=== PATIENT | female | born 1950 | race Caucasian/White ===

== ENCOUNTER 2018-02-04 12:54 | Emergency (ER) | payer OTHER ==
[2018-02-04] MEDS: IODIXANOL LOCM 100 ML BTL (13:10)
[2018-02-04] MEDS: SOD CHLORIDE 0.9% 100 ML (13:10)
[2018-02-04 13:11] LABS: ADD MAN DIFF? NO
[2018-02-04 13:14] LABS: BASOPHIL # 0.1 10^3/ul (0.0-0.1); BASOPHILS % 0.5 % (0.0-2.0); EOSINOPHILS # 0.1 10^3/ul (0.0-0.5); EOSINOPHILS % 0.3 % (0.0-7.0); HEMATOCRIT 32.5 % (37.0-47.0); HEMOGLOBIN 10.5 g/dl (12.0-16.0); LYMPHOCYTES # 1.7 10^3/ul (0.8-2.9); LYMPHOCYTES % 7.6 % (15.0-51.0); MEAN CORPUSCULAR HEMOGLOBIN 32.1 pg (29.0-33.0); MEAN CORPUSCULAR HGB CONC 32.3 g/dl (32.0-37.0); MEAN CORPUSCULAR VOLUME 99.4 fl (82.0-101.0); MEAN PLATELET VOLUME 10.6 fl (7.4-10.4); MONOCYTE # 1.5 10^3/ul (0.3-0.9); MONOCYTES % 6.8 % (0.0-11.0); PLATELET COUNT 239 10^3/UL (140-415); RED BLOOD COUNT 3.27 10^6/ul (4.20-5.40); RED CELL DISTRIBUTION WIDTH 14.1 % (11.5-14.5)
[2018-02-04 13:14] LABS: WHITE BLOOD COUNT 21.9 10^3/ul (4.8-10.8)
[2018-02-04 13:33] LABS: INR 1.27; PROTIME 16.1 Sec (11.9-14.9); PT RATIO 1.3
[2018-02-04 13:34] LABS: PARTIAL THROMBOPLASTIN TIME 29.5 Sec (23.0-35.0)
[2018-02-04 13:41] LABS: ADD UMIC YES; UR ASCORBIC ACID NEGATIVE (NEGATIVE); UR BACTERIA FEW /HPF (NONE SEEN); UR BILIRUBIN (Dip) NEGATIVE (NEGATIVE); UR BLOOD (Dip) NEGATIVE (NEGATIVE); UR BUDDING YEAST FEW /HPF (NONE SEEN); UR CLARITY CLOUDY (CLEAR); UR COLOR YELLOW (YELLOW); UR GLUCOSE (Dip) NEGATIVE (NEGATIVE); UR KETONES (Dip) NEGATIVE (NEGATIVE); UR LEUKOCYTE ESTERASE (Dip) 3+ Leu/ul (NEGATIVE); UR NITRITE (Dip) NEGATIVE (NEGATIVE); UR NONSQUAMOUS EPITHELIAL CELL 3 /HPF (NONE SEEN); UR RBC 8 /HPF (0-5); UR SPECIFIC GRAVITY (Dip) 1.012 (1.003-1.030); UR SQUAMOUS EPITHELIAL CELL MODERATE /HPF (FEW); UR TOTAL PROTEIN (Dip) NEGATIVE (NEGATIVE); UR UROBILINOGEN (Dip) 2+ mg/dL (NEGATIVE); UR WBC 116 /HPF (0-5)
[2018-02-04 13:42] LABS: ALKALINE PHOSPHATASE 1713 IU/L (42-121)
[2018-02-04 13:44] LABS: AADO2 Arterial 92.2 mmHg (7.0-24.0); Allen Test ACCEPTAB; Arterial Base Excess -2.6 mmol/L (-3.0-3); Arterial Blood Gas Oxygen Sat 99.6 mmHG (95.0-98.0); Arterial COHb 0.3 % (0.0-3.0); Arterial Fraction of Oxyhgb 99.1 % (93.0-99.0); Arterial HCO3 19.4 mmol/L (22.0-26.0); Arterial MetHb 0.2 % (0.0-1.5); Arterial Total Hemglobin 10.9 g/dl (12.0-18.0); Arterial pCO2 25.5 mmhg (35-45); MODE VENT - AC; Site Left Radial
[2018-02-04] MEDS: ASPIRIN 300 MG SUPP PR (13:44)
[2018-02-04] MEDS: SOD CHLORIDE 0.9% 1,000 ML IV (13:47)
[2018-02-04 13:48] LABS: ALBUMIN/GLOBULIN RATIO 0.85; ANION GAP 15 (8-16); ASPARTATE AMINO TRANSFERASE 104 IU/L (15-46); BILIRUBIN,INDIRECT 0.4 mg/dl (0-1.1); BILIRUBIN,TOTAL 0.4 mg/dl (0.2-1.3); BLOOD UREA NITROGEN 13 mg/dl (7-20); CALCIUM 8.4 mg/dl (8.4-10.2); CARBON DIOXIDE 23 mmol/L (21-31); CHLORIDE 106 mmol/L (97-110); CHOL/HDL RATIO 3.8 RATIO; CHOLESTEROL 152 mg/dl (100-200); CK INDEX 12.6; CK-MB 4.92 ng/ml (0.0-2.4); CREATINE KINASE 39 IU/L (23-200); CREATININE 0.78 mg/dl (0.44-1.00); GLUCOSE 209 mg/dl (70-220); HDL CHOLESTEROL 40 mg/dl (35-98); LDL CHOLESTEROL,CALCULATED 78 mg/dl; POTASSIUM 3.7 mmol/L (3.5-5.1); SODIUM 140 mmol/L (135-144); TOTAL PROTEIN 6.5 g/dl (6.1-8.1); TRIGLYCERIDES 168 mg/dl (0-149)
[2018-02-04 13:50] LABS: ETHANOL < 10.0 mg/dl
[2018-02-04 13:53] LABS: TROPONIN-I 0.741 ng/ml (0.000-0.120)
[2018-02-04] MEDS: ALTEPLASE (tPA) 1 MG/ML BOLUS SYG IV* (13:58)
[2018-02-04] MEDS: ALTEPLASE 100 MG INJ IV* (13:59)
[2018-02-04 14:05] LABS: ALANINE AMINOTRANSFERASE 84 IU/L (13-69)
[2018-02-04] MEDS: CEFTRIAXONE 1 GM/50 ML (PMX) 50 ML IVPB (14:15)
[2018-02-04] MEDS: SOD CHLORIDE 0.9% 50 ML IV (15:00)
== END 2018-02-04 15:10 | disposition short-term general hospital (02) ==
LOC: E/R 12:54
DX: G93.40 Encephalopathy, unspecified (principal); I63.411 Cerebral infarction due to embolism of right middle cerebral artery; I26.09 Other pulmonary embolism with acute cor pulmonale; I82.423 Acute embolism and thrombosis of iliac vein, bilateral; N39.0 Urinary tract infection, site not specified; G30.1 Alzheimer's disease with late onset; F02.80 Dementia in other diseases classified elsewhere, unspecified severity, without behavioral disturbance, psychotic disturbance, mood disturbance, and anxiety; E11.9 Type 2 diabetes mellitus without complications; Z86.73 Personal history of transient ischemic attack (TIA), and cerebral infarction without residual deficits; Z79.84 Long term (current) use of oral hypoglycemic drugs
CPT/HCPCS: 31500; 36415; 36600; 70450; 70496; 70498; 71045; 80053; 80061; 80307; 81001; 82550; 82553; 82803; 82962; 83036; 84484; 85025; 85610; 85730; 93005; 93970; 94002; 96374; 99291-25